=== PATIENT | male | born 1955 | race Caucasian/White ===

== ENCOUNTER 2020-08-13 16:28 | Inpatient (IN) ==
[2020-08-13] MEDS ORDERED: SODIUM CHLORIDE 0.9% 1,000 ML IV STA (17:05)
[2020-08-13] MEDS ORDERED: HYDROmorphone 2 MG/1 ML VIAL IV STA (17:05)
[2020-08-13] MEDS ORDERED: ONDANSETRON 4 MG/2 ML VIAL IV STA (17:05)
[2020-08-13 17:44] LABS: Basophils # 0.1 10*3/uL (0.0-0.2); Basophils % 0.3 % (0.0-0.8); Eosinophils # 0.1 10*3/uL (0.0-0.87); Eosinophils % 0.2 % (0.00-10.9); Hematocrit 43.3 VOL% (42.0-52.0); Hemoglobin 14.5 GM/DL (14.0-18.0); Immature Granulocytes % 0.5 %; Immature Granulocytes Absolute 0.13 #; Lymphocytes # 1.7 10*3/uL (1.4-4.0); Lymphocytes % 6.8 % (21.2-54.2); Mean Corpuscular HGB Conc 33.5 GM/DL (32-36); Mean Platelet Volume 9.8 FL (9.6-12.0); Neutrophils % 79.2 % (38.7-73.9); Platelet Count 187 T/CUMM (130-400); Red Blood Count 4.51 MC/CUMM (3.8-5.5); Red Cell Distribution Width 14.6 % (9.3-17.3); White Blood Count 24.9 T/CUMM (4-12)
[2020-08-13 18:01] LABS: Bacteria,Urine Occasional /HPF (Few); Bilirubin,Urine Negative (Negative); Blood, Urine Small mg/dL (Negative); Glucose,Urine (UA) Negative (Negative); Hyaline Casts,Urine 1 /LPF (0-3); Ketones,Urine 5 mg/dL (Negative); Mucus,Urine Occasional /LPF (Occasional); Nitrite,Urine Negative (Negative); Protein,Urine Negative; RBC,Urine 41 /HPF (0-4); Squamous Epithelial Cell,Urine Occasional /HPF (0-10); Urine Appearance CLEAR (Clear); Urine Color Yellow (Yellow); Urine Urobilinogen < 2.0 EU/DL (0.2-1.0); WBC,Urine 5 /HPF (0-6)
[2020-08-13 18:04] LABS: Albumin 3.9 G/DL (3.4-5.0); Bilirubin,Total 0.5 MG/DL (0.2-1.0); Calcium 8.8 MG/DL (8.5-10.1); Osmolality,Calculated 287.1 MOS/KG (273-304); Total Protein 6.6 G/DL (6.4-8.3)
[2020-08-13 19:14] LABS: Band Neutrophils 4 % (0-10); Lymphocytes 5 % (20-55); Platelet Estimate Normal; Segmented Neutrophils 81 % (50-85); Total Cells Counted 100
[2020-08-13] MEDS ORDERED: GLUCAGON 1 MG VIAL IM PRN (20:15)
[2020-08-13] MEDS ORDERED: DEXTROSE 50% 25 GM/50 ML VIAL IV PRN (20:15)
[2020-08-13] MEDS ORDERED: NICOTINE 21 MG/24 HR PATCH TRANSDERM PRN (20:15)
[2020-08-13] MEDS ORDERED: ACETAMINOPHEN 325 MG TABLET PO PRN (20:15)
[2020-08-13 20:48] LABS: Thyroid Stimulating Hormone 0.294 uIU/ml (0.358-3.74)
[2020-08-13] MEDS: HYDROmorphone 2 MG/1 ML VIAL IV PRN (21:00)
[2020-08-13] MEDS: SODIUM CHLORIDE 0.45% 1,000 ML IV SCH (23:55)
[2020-08-14] MEDS: ENOXAPARIN 30 MG/0.3 ML SYRINGE SUBCUT SCH ×2 (01:58→20:30)
[2020-08-14] MEDS: MORPHINE 4 MG/1 ML VIAL IV PRN ×2 (04:58→17:16)
[2020-08-14] MEDS: ONDANSETRON 4 MG/2 ML VIAL IV PRN ×2 (04:59→11:42)
[2020-08-14 05:56] LABS: Basophils # 0.1 10*3/uL (0.0-0.2); Basophils % 0.4 % (0.0-0.8); Eosinophils # 0.1 10*3/uL (0.0-0.87); Eosinophils % 0.8 % (0.00-10.9); Hematocrit 38.6 VOL% (42.0-52.0); Hemoglobin 12.9 GM/DL (14.0-18.0); Immature Granulocytes % 0.6 %; Immature Granulocytes Absolute 0.09 #; Lymphocytes # 3.3 10*3/uL (1.4-4.0); Lymphocytes % 20.6 % (21.2-54.2); Mean Corpuscular HGB Conc 33.4 GM/DL (32-36); Mean Corpuscular Volume 96.7 FL (87-102); Mean Platelet Volume 9.8 FL (9.6-12.0); Monocytes % 17.4 % (1.7-12.7); Neutrophils % 60.2 % (38.7-73.9); Platelet Count 176 T/CUMM (130-400); Red Blood Count 3.99 MC/CUMM (3.8-5.5); Red Cell Distribution Width 14.6 % (9.3-17.3); White Blood Count 15.9 T/CUMM (4-12)
[2020-08-14 06:19] LABS: Hypochromasia 1+; Lymphocytes 19 % (20-55); Microcytosis Slight; Platelet Estimate Adequate; Segmented Neutrophils 63 % (50-85); Total Cells Counted 100
[2020-08-14 06:35] LABS: Albumin 3.3 G/DL (3.4-5.0); Bilirubin,Total 0.8 MG/DL (0.2-1.0); Calcium 8.7 MG/DL (8.5-10.1); Osmolality,Calculated 280.3 MOS/KG (273-304); Total Protein 6.3 G/DL (6.4-8.3)
[2020-08-14] MEDS: SODIUM CHLORIDE 0.45% 1,000 ML IV SCH ×2 (08:05→15:35)
[2020-08-14] MEDS ORDERED: POTASSIUM CHLORIDE 20 MEQ TABLET PO ONE (08:30)
[2020-08-14] MEDS: PANTOPRAZOLE 40 MG TABLET PO SCH (09:04)
[2020-08-14] MEDS: HYDROmorphone 2 MG/1 ML VIAL IV PRN ×3 (11:41→20:30)
[2020-08-14] MEDS ORDERED: cefTRIAXone 1,000 MG in SYRINGE 1 EACH IV ONE (12:24)
[2020-08-14] MEDS ORDERED: fentaNYL 100 MCG/2 ML VIAL ONE (13:27)
[2020-08-14] MEDS ORDERED: MIDAZOLAM 2 MG/2 ML VIAL ONE (13:27)
[2020-08-14] MEDS ORDERED: LIDOCAINE 2% 5 ML VIAL ONE (13:27)
[2020-08-14] MEDS ORDERED: propofoL 200 MG/20 ML VIAL IV ONE (13:27)
[2020-08-14] MEDS ORDERED: ONDANSETRON 4 MG/2 ML VIAL ONE (13:57)
[2020-08-14] MEDS ORDERED: SEVOFLURANE 1 UNIT/15 MINUTE INH ONE (14:06)
[2020-08-14] MEDS ORDERED: ePHEDrine 50 MG/ML VIAL ONE (14:11)
[2020-08-15] MEDS: SODIUM CHLORIDE 0.45% 1,000 ML IV SCH ×2 (00:09→07:39)
[2020-08-15] MEDS: HYDROmorphone 2 MG/1 ML VIAL IV PRN ×2 (04:24→08:10)
[2020-08-15] MEDS: PANTOPRAZOLE 40 MG TABLET PO SCH (08:10)
[2020-08-15 08:45] LABS: Basophils # 0.1 10*3/uL (0.0-0.2); Basophils % 0.4 % (0.0-0.8); Eosinophils # 0.1 10*3/uL (0.0-0.87); Eosinophils % 0.8 % (0.00-10.9); Hematocrit 41.7 VOL% (42.0-52.0); Immature Granulocytes % 0.4 %; Immature Granulocytes Absolute 0.05 #; Lymphocytes # 3.2 10*3/uL (1.4-4.0); Lymphocytes % 22.3 % (21.2-54.2); Mean Corpuscular HGB Conc 33.6 GM/DL (32-36); Mean Platelet Volume 10.1 FL (9.6-12.0); Neutrophils % 61.1 % (38.7-73.9); Platelet Count 179 T/CUMM (130-400); Red Blood Count 4.39 MC/CUMM (3.8-5.5); Red Cell Distribution Width 14.4 % (9.3-17.3); White Blood Count 14.2 T/CUMM (4-12)
[2020-08-15 09:10] LABS: Calcium 8.7 MG/DL (8.5-10.1); Osmolality,Calculated 276.5 MOS/KG (273-304)
[2020-08-15 11:19] VITALS: BP 128/76
== END 2020-08-15 14:50 | disposition home or self-care (01) | DRG 661 ==
LOC: N.ED 16:28 → N.EDINP 20:14 → N.3E 22:45
PROVIDERS: ADMIT Internal Medicine; ATTEND Internal Medicine